=== PATIENT | female | born 1950 | race Caucasian/White ===

== ENCOUNTER 2016-07-01 16:32 | Emergency (ER) | payer BC ==
[2016-07-01] MEDS ORDERED: IBUPROFEN 600 MG TABLET PO ONE (16:54)
[2016-07-01] MEDS ORDERED: IPRATROPIUM/ALBUTEROL (0.5MG/3MG) NEB INH ONE (16:54)
--- NOTE | 2016-07-01 16:58 | Emergency Department Record ---
History of Present Illness - General Chief Complaint: Cough Stated Complaint: COUGH,EAR ACHE,HEADACHE Time Seen by Provider: 07/01/16 16:54 Source: Patient Mode of Arrival: Ambulatory Limitations: No limitations - History of Present Illness Initial Comments: 56 yo female presents to ED with a CC of cough and body aches that began last night. Patient reports subjective fevers, chills, headache, sore throat, and non-productive cough "that kept me up all night". Patient took mucinex last night without improvement of her symptoms. Patient denies previous heart or lung problems. MD Complaint: Cough, Fever, Nasal congestion, Sore throat Onset/Timin -: Days(s) Severity: Mild Quality: Aching Consistency: Constant Improves With: Nothing Worsens With: Nothing Context: Sick contacts Associated Symptoms: Headache, Myalgias Treatments Prior to Arrival: "Cold medicine" - Related Data Home Medications Medication Instructions Recorded Confirmed Last Taken Atorvastatin Calcium 1 tab PO DAILY #34 04/12/16 07/01/16 06/30/16 Clopidogrel Bisulfate [Clopidogrel] 1 tab PO DAILY #34 04/12/16 07/01/16 Estradiol 1 tab PO DAILY #30 04/12/16 07/01/16 06/30/16 Hydrocodone/Acetaminophen 1 tab PO Q6H #120 04/12/16 07/01/16 06/30/16 [Hydrocodon-Acetaminophn 10-325] Hydroxyzine HCl 1 tab PO DAILY #100 04/12/16 07/01/16 06/30/16 Indapamide 1 tab PO DAILY #30 04/12/16 07/01/16 06/30/16 Lisinopril 1 tab PO DAILY #30 04/12/16 07/01/16 06/30/16 Medroxyprogesterone Acetate 1 tab PO DAILY #15 04/12/16 07/01/16 06/30/16 Metformin HCl 1 tab PO DAILY #30 04/12/16 07/01/16 06/30/16 Omeprazole 20 mg PO DAILY #30 04/12/16 07/01/16 06/30/16 Potassium Chloride 10 meq PO DAILY #34 04/12/16 07/01/16 06/30/16 Previous Rx's Medication Instructions Recorded Oseltamivir Phosphate [Tamiflu] 75 mg PO BID #10 capsule 07/01/16 Allergies Allergy/AdvReac Type Severity Reaction Status Date / Time hydromorphone HCl Allergy Unknown HIVES Verified 07/01/16 16:44 [From DILAUDID] Travel Screening - Travel/Exposure Within Last 30 Days Have you traveled within the last 30 days?: No - Travel/Exposure Within Last Year Have you traveled outside the [place] in the last year?: No - Additonal Travel Details Have you been exposed to anyone with a communicable illness?: No - Travel Symptoms Symptom Screening: None Review of Systems Constitutional: Reports: Chills, Fever, Malaise. Denies: Night sweats Eyes: Denies: Eye discharge, Eye pain ENT: Reports: Congestion, Throat pain. Denies: Ear pain, Epistaxis Respiratory: Reports: Cough. Denies: Dyspnea Cardiovascular: Denies: Chest pain, Dyspnea on exertion Endocrine: Reports: Fatigue. Denies: Heat or cold intolerance, Polydipsia, Polyuria Gastrointestinal: Denies: Abdominal pain, Nausea, Vomiting Genitourinary: Denies: Dysuria, Frequency, Hematuria, Incontinence Musculoskeletal: Reports: Myalgia. Denies: Arthralgia, Back pain, Gout, Joint swelling Skin: Denies: Bruising, Change in color, Rash Neurological: Reports: Headache. Denies: Abnormal gait, Confusion, Seizure Psychiatric: Denies: Anxiety Hematological/Lymphatic: Denies: Anemia, Blood Clots Past Medical History - SOCIAL HISTORY Smoking Status: Never smoker Alcohol Use: None Drug Use: None - RESPIRATORY Hx Respiratory Disorders: No - CARDIOVASCULAR Hx Cardio Disorders: Yes Hx Hypertension: Yes - NEURO Hx Neuro Disorders: No - GI Hx GI Disorders: No - Hx Genitourinary Disorders: No - ENDOCRINE Hx Endocrine Disorders: No - MUSCULOSKELETAL Hx Musculoskeletal Disorders: No - PSYCH Hx Psych Problems: No - HEMATOLOGY/ONCOLOGY Hx Hematology/Oncology Disorders: No Family Medical History Any Significant Family History?: No Physical Exam - General General Appearance: Alert, Oriented x3, Cooperative, Mild distress Limitations: No limitations - Head Head exam: Atraumatic, Normocephalic, Normal inspection Head exam detail: negative: Abrasion, Contusion, Gaston's sign, General tenderness, Hematoma, Laceration - Eye Eye exam: Normal appearance. negative: Conjunctival injection, Periorbital swelling, Periorbital tenderness, Scleral icterus - ENT ENT exam: Mucous membranes moist, TM's normal bilaterally Ear exam: negative: Auricular hematoma, Auricular trauma Nasal Exam: negative: Active bleeding, Discharge, Dried blood, Foreign body Mouth exam: negative: Drooling, Laceration, Muffled voice, Tongue elevation Throat exam: Normal inspection. negative: Tonsillar erythema, Tonsillomegaly, Tonsillar exudate, R peritonsillar mass, L peritonsillar mass - Neck Neck exam: Normal inspection. negative: Meningismus, Tenderness - Respiratory Respiratory exam: Normal lung sounds bilaterally. negative: Rales, Respiratory distress, Rhonchi, Stridor - Cardiovascular Cardiovascular Exam: Regular rate, Normal rhythm, Normal heart sounds - GI/Abdominal GI/Abdominal exam: Soft. negative: Rebound, Rigid, Tenderness - Rectal Rectal exam: Deferred - exam: Deferred - Extremities Extremities exam: Normal inspection. negative: Pedal edema, Tenderness - Back Back exam: Denies: CVA tenderness (R), CVA tenderness (L) - Neurological Neurological exam: Alert, Normal gait, Oriented X3 - Psychiatric Psychiatric exam: Normal affect, Normal mood - Skin Skin exam: Normal color. negative: Abrasion Type of lesion: negative: abrasion Course Vital Signs 07/01/16 16:33 Temperature 99.6 F Pulse Rate 119 H Respiratory 18 Rate Blood Pressure 155/99 Pulse Ox 95 - Reevaluation(s) Reevaluation #1: 07/01/16 17:50 Influenza B positive. Reevaluation #2: 07/01/16 18:20 CXR: No acute process Patient was updated on all results and positive influenza, appears stable for discharge at this time on Tamiflu for her symptoms. Disposition Disposition: Discharge Clinical Impression: Influenza B Disposition: Home, Self-Care Condition: (2) Stable Instructions: Influenza (ED) Additional Instructions: Return to ED if your symptoms worsen or if you have any concerns. Tamiflu as directed, Motrin/Tylenol for bodyaches/fever. Follow-up with your family doctor in 3-5 days as directed. Prescriptions: Oseltamivir Phosphate [Tamiflu] 75 mg PO BID #10 capsule Forms: Patient Portal Access Time of Disposition: 18:21
[2016-07-01 17:47] LABS: INFLUENZA A NEGATIVE (NEGATIVE); INFLUENZA B POSITIVE (NEGATIVE)
--- NOTE | 2016-07-04 15:12 | RADIOLOGY REPORT ---
EXAM: CHEST 2 VIEWS HISTORY: DIFFICULTY IN BREATHING. TECHNIQUE: Frontal and lateral views of the chest were performed. FINDINGS: Heart size normal. Lung fontaine clear. Osseous structures normal. IMPRESSION: NEGATIVE CHEST EXAMINATION. JOB NUMBER: [id number] MTDD
== END 2016-07-01 18:37 | disposition home or self-care (01) ==
LOC: ER 16:32
DX: J10.1 Influenza due to other identified influenza virus with other respiratory manifestations (principal); R05 Cough
CPT/HCPCS: 71020; 87400; 94640; 99283